=== PATIENT | female | born 1955 | race Caucasian/White ===

== ENCOUNTER 2017-10-20 17:36 | Emergency (ER) | payer BC ==
[~2017-10-20] VITALS: Ht 165.1 cm; Wt 92.5 kg
[2017-10-20] MEDS ORDERED: METOPROLOL SUCC50 MG (21:17)
[2017-10-20] MEDS ORDERED: CELECOXIB200 MG (21:17)
[2017-10-20] MEDS ORDERED: HYDROCHLOROTHIA25 MG (21:17)
[2017-10-20] MEDS ORDERED: METFORMIN HCL500 MG (21:17)
[2017-10-20] MEDS ORDERED: ENALAPRIL MALEA20 MG (21:17)
[2017-10-20] MEDS ORDERED: SIMVASTATIN10 MG (21:18)
[2017-10-20] MEDS ORDERED: AFLURIA (21:18)
[2017-10-20] MEDS ORDERED: NORCO 5-325 TA1 EACH PO (23:18)
== END 2017-10-21 00:03 | disposition home or self-care (01) ==
LOC: ED 17:36
DX: M54.5 Low back pain (principal); I10 Essential (primary) hypertension; E11.9 Type 2 diabetes mellitus without complications; F17.200 Nicotine dependence, unspecified, uncomplicated; Z88.1 Allergy status to other antibiotic agents; Z79.899 Other long term (current) drug therapy; Z79.84 Long term (current) use of oral hypoglycemic drugs; W19.XXXA Unspecified fall, initial encounter
CPT/HCPCS: 96372; 99283; J2270

== ENCOUNTER 2018-02-07 12:44 | Inpatient (IN) | payer BC ==
[~2018-02-07] VITALS: Ht 165.1 cm; Wt 92.5 kg
[~2018-02-07 12:44] MED LIST: AFLURIA; CELECOXIB200 MG; ENALAPRIL MALEA20 MG; HYDROCHLOROTHIA25 MG; METFORMIN HCL500 MG PO; METOPROLOL SUCC50 MG PO; NORCO 5-325 TA1 EACH PO; SIMVASTATIN10 MG PO
[2018-02-20] MEDS ORDERED: VIACTIV SOFT C1 EACH PO (15:51)
[2018-02-20] MEDS ORDERED: LISINOPRIL-HCT1 EAC1 PO (15:51)
--- NOTE | 2018-03-01 09:22 | NUR ---
03/01/18 0922 Geovanna Vizcaino 0912-PATIENT ARRIVED TO PACU ON RA O2 SAT 96% REACTIVE AWAKENS TO VERBAL STIMULI DENIES PAIN OR NAUSEA. DROWSY. NO DRAINAGE TO ARACELI AREA ARGUELLO CATHETER IN PLACE BRIGHT YELLOW URINE 0920-SPINAL LEVEL AT T10 DENIES PAIN OR NAUSEA. DOZING BACK TO SLEEP. RA O2 SAT 95%
--- NOTE | 2018-03-01 10:13 | NUR ---
PT IS ALERT, ORIENTED AND SUPPORTED BY A FRIEND. SHE SEEMED INFORMED, HAD FEW QUESTIONS AND REQUESTED PRAYER. WILL CONTINUE TO FOLLOW NEEDED
--- NOTE | 2018-03-01 10:41 | NUR ---
PT ARRIVED TO UNIT VIA STRETCHER, SPINAL REMAINS AT T10, REQUIRED FULL SLIDE ASSIST TO HOSPITAL BED. PT DENIES PAIN OR NAUSEA. STATED "I WAS A LITTLE DIZZY ON THE WAY HERE BUT I'M BETTER NOW." REPORTS SOME ITCHING OF ABD, REFUSED MEDICATION AT THIS TIME. SCANT AMOUNT OF BLEEDING FROM VAGINA, PACKING IN PLACE. ARGUELLO PATENT, MINIMAL OUTPUT. IV INFUSING WNL. PT SATTING 95% ON RA. BP 92/60, HOB FLAT. PT ALER AND ORIENTED, TOOK SOME SIPS OF WATER, EUGENE WELL. SCD'S IN PLACE. CALL LIGHT WITHIN REACH.
--- NOTE | 2018-03-01 13:04 | NUR ---
PT RESTING IN BED WATCHING TV. SATTING 96% ON RA. PT DENIES PAIN, NAUSEA, OR OTHER CONCERNS AT THIS TIME. SCANT AMOUNT OF VAGINAL OUTPUT. ARGUELLO PUTTING OUT MINIMAL AMOUNT, WILL MONITOR CLOSELY. PT DRINKING WATER AND CLEARS, JELLO, BROTH JUICE, EUGENE WELL. CALL LIGHT WITHIN REACH.
--- NOTE | 2018-03-01 14:12 | NUR ---
PT IS ALERT, ORIENTED AND SEEMED PREPARED FOR TODAY. PT EXPRESSED HER THANKFULNESS FOR SA[facility], BUT EXPRESSED UNHAPPINESS WITH THE BILLING PROCESS FROM PREVIOUS PROCEDURES AND PRE-OP FOR TODAY'S PROCEDURE. PT REQUESTED PRAYER, AND I PASSED HER CONCERNS ON TO ADMIN. THEY WANT GWEN TO CONTACT PT. I WILL LET GWEN KNOW ABOUT SITUATION. WILL FOLLOW NEEDED
--- NOTE | 2018-03-01 14:15 | NUR ---
PT RESTING ON HER LEFT SIDE, RESP EVEN AND UNLABORED. SATTING 94% RA.
--- NOTE | 2018-03-01 14:52 | NUR ---
PATIENT RESTING IN BED, PATIENT STATES SHE ITCHES EVERYWHERE, SUCH HER BACK AND FACE. SHE STATES SOME PLACES ITCH MORE THAN OTHERS. RN NOTIFIED. PATIENT CALL LIGHT IN REACH. NO OTHER NEEDS AT THIS TIME.
--- NOTE | 2018-03-01 14:59 | NUR ---
I CONTACTED GWEN, REGARDING THE CONCERNS PT HAD EXPRESSED ABOUT HER BILLING ISSUES. GWEN CAME DOWN, I INTRO THEM, AND LEFT GWEN WITH PT. WILL FOLLOW NEEDED
--- NOTE | 2018-03-01 15:00 | NUR ---
PT MEDICATED WITH SCHEDULED MOTRIN. DENIES PAIN. PT MOVING WELL IN BED, REPORTS SENSATION RETURNED ALL THE WAY TO TOES. TAKING BITES OF PUDDING WITH MOTRIN. CALL LIGHT WITHIN REACH.
--- NOTE | 2018-03-01 15:31 | NUR ---
PT C/O ITCHING, 10 MG NUBAIN GIVEN SUBQ, PER ORDERS. PT C/O NAUSEA AND METALIC TASTE IN THE BACK OF THROAT, 100 MG EMESIS. 4 MG ZOFRAN GIVEN. PT REPORTS FEELING FLUSHED BUT STATES NAUSEA HAS IMPROVED. PT ADVISED OF S/SX OF ADVERSE REACTIONS TO MONITOR FOR AND TO INFORM STAFF, PT VERBALIZED UNDERSTANDING AND AGREEABLE. WILL CONTINUE TO MONITOR.
--- NOTE | 2018-03-01 16:26 | NUR ---
PT HAD EMESIS OF APPROX 200ML. MEDICATED WITH IV REGLAN. ASSISTED PT TO REPOSITION IN BED. STATES "I'M FEELING BETTER NOW, I'M GONNA TRY TO REST A LITTLE BIT." DENIES PAIN OR DIZZINESS AT THIS TIME. VERY SMALL AMOUNT OF DARK RED OUTPUT FROM VAGINA, PACKING REMAINS IN PLACE. SATTING 93% ON RA. PT REPORTS RETURNED SENSATION OF BILATERAL LOWER EXTREMITIES, GOOD MOVEMENT. CALL LIGHT WITHIN REACH.
--- NOTE | 2018-03-01 16:48 | NUR ---
PT NOW REPORTING 5/10 LOWER ABD PAIN. MEDICATED WITH 2MG IV MORPHINE. PLACED ON 2L NC PT SATS DROP TO 88% WHILE ASLEEP. ENGOURAGED USE OF I.S.
--- NOTE | 2018-03-01 18:14 | NUR ---
PT DENIES PAIN AT THIS TIME ONLY REPORTS "PRESSURE IN LOWER ABD AND VAGINA". ATE A SMALL AMOUNT OF CHICKEN QUESADILLA AND SALAD. PT STATES "I KEEP FEELING LIKE I'M GOING TO PASS OUT." VSS AND BG 165. PT GIVEN NS BOLUS, MEDICATED WITH MECLIZINE AND SCOPE PATCH APPLIED. PT TURNED TO SIDE AND STATED SHE WAS GOING TO TRY TO SLEEP. CALL LIGHT WITHIN REACH.
--- NOTE | 2018-03-01 19:06 | NUR ---
PATIENT REQUESTED SCD'S TO BE TURNED OFF. THIS INGOT WEIGHER TURNED SCD'S OFF, RN NOTIFIED.
--- NOTE | 2018-03-01 19:49 | NUR ---
RECEIVED REPORT FROM DAY SHIFT RN. PATIENT IS RESTING IN BED WITH EYES CLOSED. PULSE OX READINGS ARE WNL. CALL LIGHT IN REACH.
--- NOTE | 2018-03-01 21:15 | NUR ---
PATIENT ASSESMENT COMPLETED. PATIENTS EVENING MEDICATIONS GIVEN PER ORDER. PATIENT RATES PAIN AT A 4/10. PATIENT GIVEN SCHEDULED MOTRIN. PATIENT DENIES THE NEED FOR ANY FURTHER PAIN MEDICATION. PATIENT STOOD AT THE BEDSIDE WHILE BEDDING WAS CHANGED. PATIENT WAS ABLE TO STAND WITH NO ISSUES. PATIENT DENIES BEING DIZZY OR LIGHT HEADED. PATIENT IS NOW BACK IN BED RESTING. PATIENTS VITALS TAKEN AND RECORDED. PATIENT HAS SMALL BROWN DRAINAGE ON THE CHUCKS ON BED. ARACELI CARE PERFORMED. PATIENT GIVEN BROTH AND CRACKERS. PATIENT IS ON AN ADA DIET. PATIENT DENIES ANY NAUSEA. PATIENT IS ON RA, AND PULSE OX IN PLACE. NO FURTHER NEEDS NOTED. CALL LIGHT IN REACH.
--- NOTE | 2018-03-01 23:22 | NUR ---
PATIENT IS RESTING IN BED WATCHING TV. PATIENT DENIES ANY PAIN OR NAUSEA. PATIENT GIVEN SUGAR FREE PUDDING PER REQUEST. NO FURTHER NEEDS NOTED. CALL LIGHT IN REACH.
--- NOTE | 2018-03-02 00:16 | NUR ---
PATIENT GIVEN SANDWICH BOX PER REQUEST FOR FOOD. PATIENT RATES PAIN AT A 2/10. PATIENT DENIES THE NEED FOR PAIN MEDICATION AT THIS TIME. PATIENT REMAINS ON RA. PULSE OX READINGS ARE WNL. PATIENT DENIES ANY FURTHER NEEDS CALL LIGHT IN REACH.
--- NOTE | 2018-03-02 02:14 | NUR ---
PATIENTS VITALS TAKEN AND RECORDED. PATIENT DENIES ANY PAIN. PATIENT COMPLAINS OF "A LITTLE ITCHING". PATIENT OFFERED PRN MEDICATION. PATIENT DENIES THE NEED FOR ANY MEDICATION. PATIENT IS DROWSY AND FALLS BACK ASLEEP EASILY. PATIENTS ARGUELLO EMPTIED, OUPUT IS QS. PATIENT REMAINS ON RA AND PULSE OX READINGS ARE WNL. NO FURTHER NEEDS NOTED. CALL LIGHT IN REACH.
--- NOTE | 2018-03-02 04:56 | NUR ---
PATIENT IS RESTING IN BED WITH EYES CLOSED. BREATHING IS EVEN AND UNLABORED, RR 17. PATIENT IS ON RA. PULSE OX IN PLACE AND READINGS ARE WNL. CALL LIGHT IN REACH.
--- NOTE | 2018-03-02 05:29 | NUR ---
PATIENT UP AND AMBULATED IN THE HALLWAY. PATIENT IS NOW BACK IN BED RESTING. PATIENT HAD A SMALL AMOUNT OF BROWN DRAINAGE ON DARIN WHEN UP OUT OF BED. PATIENT RATES PAIN AT A 2/10. SCHEDULED MOTRIN GIVEN PER ORDER. PATIENT DENIES THE NEED FOR FURTHER PAIN MEDICATION. PATIENTS ARGUELLO DC'D PER ORDER AT 0520. PATIENT TOLERATED ACTIVITY WELL. PATIENT GIVEN SF APPLESAUCE PER REQUEST. PATIENT DENIES ANY NAUSEA. NO FURTHER NEEDS NOTED. CALL LIGHT IN REACH. PATIENT IS ON RA. IV INFUSING. PATIENT EDUCATED ON THE NEED TO CALL TO GET UP OUT OF BED. PATIENT VERBALIZES UNDERSTANDING.
--- NOTE | 2018-03-02 05:37 | NUR ---
PATIENT COMPLAINS OF ITCHING. PRN MEDICATION GIVEN PER ORDER. NO FURTHER NEEDS NOTED. LAB IN ROOM
--- NOTE | 2018-03-02 06:18 | NUR ---
PATIENT ASSISTED TO THE RESTROOM A SBA. PATIENT IS STEAD NO HER FEET. PATIENT WAS ABLE TO VOID 25ML. PATIENT BLADDER SCANNED AND 136ML REMAIN IN HER BLADDER. PATIENT DENIES ANY PAIN. PATIENT ONLY COMPLAINS OF PRESSURE. PATIENT COMPLAINS OF ITCHING, BUT DENIES THE NEED FOR ANY MEDICATION AT THIS TIME. CALL LIGHT IN REACH.
--- NOTE | 2018-03-02 08:00 | NUR ---
RECEIVED REPORT AT 0700, FOUND PT IN BED SLEEPING. ASSISTED PT TO BATHROOM. PT HAD NO NEEDS OR CONCERNS AT THAT TIME.
--- NOTE | 2018-03-02 09:40 | NUR ---
pt is sitting up in bed finishing her breakfast. pt asked to shower, her IV site was wrapped and shower is all set up for her. pt's morning vitals were done already by nurse effie. pt did not need anything else at the moment
--- NOTE | 2018-03-02 10:05 | NUR ---
PT TOLERATED BREAKFAST WELL, NO N/V. V/S ARE WDL, ABD SOUNDS ARE PRESENT AND PT IS PASSING GAS. VAG PACKING HAS BEEN REMOVED BY MD LUJAN AND PT HAS SCANT VAG BLEEDING. NO EDEMA NOTED. PT IS DOING WELL WITH VOIDING TRIAL. PT IS IN SHOWER AT THIS TIME. NO NEW CONCERNS AT THIS TIME.
--- NOTE | 2018-03-02 11:38 | NUR ---
MED REC COMPLETE
--- NOTE | 2018-03-02 12:00 | NUR ---
PAIN IS WELL MANAGED WITH PRN PAIN MEDS AVAILABLE. STILL DOING VOIDING TRIAL. PT IS PASSING GAS. PT SHOWERED. NO NEW CONCERNS AT THIS TIME.
--- NOTE | 2018-03-02 12:32 | NUR ---
PT STANDING UP IN RM. SEEMED TO BE UNCOMFORTABLE WITH PAIN. SHE LAYED BACK DOWN ON BED. PT MENTIONED THAT HER PAIN WAS AT 4. HAS NOT BEEN SICK TO HER STOMACH TODAY. EXTENDED A BLESSING, WILL FOLLOW NEEDED
--- NOTE | 2018-03-02 14:00 | NUR ---
V/S ARE WDL. PAIN IS WELL CONTROLLED. VOIDING TRIAL IS LOOKING BETTER AT THIS TIME. PT HAS NO NEW CONCERNS AT THIS TIME.
--- NOTE | 2018-03-02 14:35 | NUR ---
pt is resting in bed safely with call light in reach. pt did not need anything at the moment
--- NOTE | 2018-03-02 16:00 | NUR ---
PAIN IS WELL CONTROLLED. VOIDING TRIAL IS GOING WELL. LAST TIME PT URINATED SHE HAD 400ML OUT AND 0ML POST VOID RESIDUAL. I ENCOURAGED PT TO AMBULATE SOME MORE. NO NEW COCNERNS FOR THIS PT.
--- NOTE | 2018-03-02 17:21 | NUR ---
TOOK OUT HER IV AND GETTING HER A CUP OF ICE. NOW SHE IS IN HER CHAIR EATING HER DINNER.
[2018-03-02] MEDS ORDERED: NORCO 5-325 TA1 EACH PO (17:27)
[2018-03-02] MEDS ORDERED: SENOKOT-S TABL1 EACH PO (17:29)
[2018-03-02] MEDS ORDERED: IBUPROFEN800 MG PO (17:29)
[2018-03-02] MEDS ORDERED: KONDREMUL2.5 ML/5 M PO (17:30)
[2018-03-02] MEDS ORDERED: NICODERM CQ1 EAC1 TD (17:31)
--- NOTE | 2018-03-03 14:43 | OR ---
[facility] [address] [place], [place] [address] Signed DATE OF OPERATION: SURGEON: Chen Canales MD LOSS PREVENTION AGENT: Dr. Santiago. PREOPERATIVE DIAGNOSIS: Uterovaginal prolapse. POSTOPERATIVE DIAGNOSIS: Uterovaginal prolapse. PROCEDURES: Total vaginal hysterectomy, partial right salpingectomy, sacrospinous cuff suspension, rectocele repair, and cystoscopy. ANESTHESIA: Spinal with IV sedation. ESTIMATED BLOOD LOSS: 150 mL. PACKS: Vaginal. DRAINS: Bell catheter. INDICATIONS AND FINDINGS: The patient is a 62-year-old female, 1, para 1, who has been having worsening uterovaginal prolapse over the last several years. She has failed a pessary trial x2. At this point, she desires definitive treatment. At the time of surgery, the cystocele presented at the hymen. The uterus was also with a grade 3 prolapse. There was a grade 2 rectocele. The uterus was slightly enlarged with some small fibroids. The right tube and ovary appeared normal, though the left tube and ovary could not be seen. DESCRIPTION OF PROCEDURE: The patient was prepped and draped in the dorsal lithotomy position. A weighted speculum was placed and the anterior and posterior lips of the cervix were grasped with single-tooth tenaculums. The cervix was then injected with 1% lidocaine with 1:200,000 Electronically Signed By: CHEN CANALES MD 03/03/18 1443 PATIENT NAME: CHEN PEREIRA OPERATIVE REPORT DATE OF : 55 REPORT #: [id number] PHYSICIAN: CHEN CANALES MD PCP: HERNANDEZ HAIR DO REPORT IS CONFIDENTIAL AND NOT TO BE RELEASED WITHOUT AUTHORIZATION [facility] [address], [place] [address] Signed epi. A volume of 10 mL was placed. The posterior cul-de-sac was then entered sharply and the uterosacral ligaments grasped bilaterally, divided and suture ligated with 0 Vicryl. Following this, the [place]ck speculum was replaced into the posterior cul-de-sac. The vaginal mucosa was then scored circumferentially and sharp dissection was used to push the vaginal tissue off the cervix. Another bite was taken on each side in the cardinal ligament areas again using the curved Z clamps, divided with the Major scissors and suture ligated with 0 Vicryl. At this point, the anterior peritoneum could be entered sharply. The remaining cardinal ligament areas and the uterine vessel areas were clamped, serially divided with the Major scissors, and suture ligated with zero Vicryl. Each bite was taken and the peritoneum was incorporated both anteriorly and posteriorly. Following this, the uterus could be delivered posteriorly and the remaining broad ligament pedicles could be clamped across with a curved Z clamps and divided. This was followed by free tie of 0 Vicryl followed by a suture ligature of 0 Vicryl. Following this, the tube on the patient's right side was identified and grasped with a [place] clamp. The fimbriated end could be clamped across and excised. This was followed by free tie of 0 Vicryl. The cuff was then serially inspected and seen to be hemostatic. The angle sutures were placed incorporating the vaginal mucosa, exteriorizing the broad ligament pedicles, coming across the peritoneum anteriorly, and exiting via the uterosacral ligaments inferiorly. These were tied laterally and this was done bilaterally. Following this, the peritoneum was closed with a running suture of 3-0 Vicryl. The cuff was closed with a running locking stitch of 0 Vicryl. Following this, the anterior vaginal wall was very short. It was not felt that a cystocele repair could be performed given the length of the anterior wall. Preparations were then made for the rectocele repair. A triangle of tissue was removed from the perineal body and the vaginal mucosa was then undermined, incised in the midline to the apex of the vagina. The vaginal mucosa was from the underlying tissue with a combination of blunt and sharp dissection and this was carried out. The sacrospinous ligaments on each side. A zero [place] suture was used with the Capio device to deploy the suture through the midportion of the sacrospinous ligament and these were placed to be used later. Following this, the perirectal fascial type tissue was reapproximated with interrupted sutures of 0 Vicryl. A rectal examination was then done, which confirmed good reduction of the defect and no sutures compromising the rectal lumen. The sacrospinous cuff suspension was then done by suturing through the vaginal cuff with the other end of the [place] suture. These were tied down with appropriate tension on each side. This was done to suspend the cuff and to hopefully prevent further prolapse. Following this, FloSeal was injected around each of the sacrospinous ligaments to aid in hemostasis. The vaginal mucosa was trimmed quite a bit and the vaginal mucosa was closed with a running suture of 2-0 Vicryl from the apex of the vagina to the hymenal ring. The perineal body was reapproximated with interrupted sutures of 2-0 Vicryl. The hymen was reapproximated with a running suture of 2-0 Electronically Signed By: CHEN CANALES MD 03/03/18 1443 PATIENT NAME: CHEN PEREIRA OPERATIVE REPORT DATE OF : 55 REPORT #: [id number] PHYSICIAN: CHEN CANALES MD PCP: HERNANDEZ HAIR DO REPORT IS CONFIDENTIAL AND NOT TO BE RELEASED WITHOUT AUTHORIZATION [facility] [address] [place], [place] [address] Signed Vicryl. The skin of the perineum was closed with a subcuticular sutures of 2-0 Vicryl. Inspection of the vault showed good length and caliber. The cuff appeared well suspended. Good hemostasis was noted. Cystoscopy was done. The patient had received IV fluorescein. The Bell catheter was removed and the cystoscope was placed using the 30-degree scope initially. It was very difficult to visualize the ureteral orifices using the 30-degree scope. This was switched out for the 70. At this point, both ureteral orifices were identified and free flow of the fluorescein stained urine was seen to come from each side. Following this, the bladder was drained and the Bell catheter replaced. The vaginal canal was then packed with sulfa coated gauze. All sponge and needle counts were correct. She tolerated the procedure well and was taken to the recovery room in good condition. Chen Canales MD PJW/MODL /[id number] cc: Dr. FIELD [place] [address]. Hernandez Hair Copies: ~ Electronically Signed By: CHEN CANALES MD 03/03/18 1443 PATIENT NAME: CHEN PEREIRA OPERATIVE REPORT DATE OF : 55 REPORT #: [id number] PHYSICIAN: CHEN CANALES MD PCP: HERNANDEZ HAIR DO REPORT IS CONFIDENTIAL AND NOT TO BE RELEASED WITHOUT AUTHORIZATION
== END 2018-03-02 18:05 | disposition home or self-care (01) | DRG 743 ==
LOC: DSVR 03-01 05:45 → EDSTATUS 03-01 06:45 → DS 03-01 06:45 → MS 03-01 10:00
PROVIDERS: ADMIT Obstetrics & Gynecology
PROC: 0USGXZZ Reposition Vagina, External Approach (ICD-10-PCS; 2018-03-01)
PROC: 0UT97ZZ Resection of Uterus, Via Natural or Artificial Opening (ICD-10-PCS; principal; 2018-03-01 06:45)
PROC: 0UB57ZZ Excision of Right Fallopian Tube, Via Natural or Artificial Opening (ICD-10-PCS; 2018-03-01 06:45)
PROC: 0JQC0ZZ Repair Pelvic Region Subcutaneous Tissue and Fascia, Open Approach (ICD-10-PCS; 2018-03-01 06:45)
DX: N81.2 Incomplete uterovaginal prolapse (principal); D25.9 Leiomyoma of uterus, unspecified; I10 Essential (primary) hypertension; E66.9 Obesity, unspecified; E78.5 Hyperlipidemia, unspecified; F17.210 Nicotine dependence, cigarettes, uncomplicated; R11.2 Nausea with vomiting, unspecified; R42 Dizziness and giddiness; E11.9 Type 2 diabetes mellitus without complications; L29.9 Pruritus, unspecified; T40.2X5A Adverse effect of other opioids, initial encounter; Y92.239 Unspecified place in hospital as the place of occurrence of the external cause; Z88.1 Allergy status to other antibiotic agents; Z79.84 Long term (current) use of oral hypoglycemic drugs; Z79.899 Other long term (current) drug therapy; Z68.34 Body mass index [BMI] 34.0-34.9, adult
CPT/HCPCS: 00944; 36415; 80048; 85027; 94762; 99406; C1762; C2631; J0131; J0694; J1200; J1644; J1815; J2250; J2270; J2274; J2300; J2405; J2704; J2765; J3010; J7030; J7120